=== PATIENT | female | born 1940 | race Caucasian/White ===

== ENCOUNTER → 2017-05-12 | Day surgery (SDC) | payer OTHER, MEDICARE ==
--- NOTE | 2017-05-16 10:18 | PATH ---
Surgical Pathology Report Patient Name: RUSSELL STORY [facility]. Rec. #: [id number] /Age/Gender: 1940 (Age: 77) / F Account: [id number] Location: [facility] Taken: 05/12/2017 Received: 05/12/2017 Reported: 05/16/2017 Physicians: Christian Alonso M.D. Specimen(s) Received A: RIGHT BREAST SPECIMEN WITH CALCIFICATIONS B: RIGHT BREAST SPECIMEN WITHOUT CALCIFICATIONS Clinical History Mammographic findings: Microcalcification, suspicious Final Diagnosis A. BREAST, RIGHT, WITH CALCIFICATIONS, STEREOTACTIC BIOPSY: SCLEROSED FIBROADENOMA WITH ASSOCIATED COARSE STROMAL CALCIFICATIONS. FOCAL MICROCYST FORMATION AND USUAL DUCTAL HYPERPLASIA (UDH). B. BREAST, RIGHT, STEREOTACTIC BIOPSY: BENIGN BREAST TISSUE. Electronically Signed Umm Celestin M.D. Gross Description A. Received in formalin labeled "right breast with calcifications," is a 2.2 x 2.2 x 0.3 cm aggregate of multiple abebe-yellow, irregular to cylindrical portions of fibroadipose tissue. The formalin is filtered and the specimen is entirely submitted in one cassette. B. Received in formalin labeled "right breast without calcifications," is a 2.2 x 1.8 x 0.3 cm aggregate of multiple abebe-yellow, irregular to cylindrical portions of fibroadipose tissue. The formalin is filtered and the specimen is entirely submitted in one cassette. Time to formalin fixation: 5 minutes Total formalin fixation time: Approximately 6 hours. /05/12/2017 saudi05/12/2017
== END | disposition home or self-care (01) ==
LOC: FMAMMOTONE 10:02
PROVIDERS: ATTEND Surgery Surgical Oncology
PROC: 0HBT3ZX Excision of Right Breast, Percutaneous Approach, Diagnostic (ICD-10-PCS; principal; 2017-05-12)
DX: D24.1 Benign neoplasm of right breast (principal); N60.81 Other benign mammary dysplasias of right breast; N64.89 Other specified disorders of breast; R92.1 Mammographic calcification found on diagnostic imaging of breast
CPT/HCPCS: 19081; 87899; 88305-TC; A4648